=== PATIENT | female | born 1980 | race Caucasian/White ===

== ENCOUNTER 2017-12-02 12:34 | Inpatient (IN) | payer MEDICAID ==
[2017-12-02] MEDS: KETOROLAC 15 MG INJ IV (03:00)
[~2017-12-02 12:34] MED LIST: DEXAMETHASONE 4 MG/ML 1 ML INJ
[2017-12-02] MEDS: SOD CHLORIDE 0.9% 1,000 ML IV ×2 (13:29→19:57)
[2017-12-02] MEDS: ONDANSETRON 4 MG INJ IV ×3 (13:30→23:06)
[2017-12-02 13:32] LABS: ADD MAN DIFF? NO
[2017-12-02 13:36] LABS: BASOPHILS % 0.2 % (0.0-2.0); HEMATOCRIT 40.1 % (37.0-47.0); HEMOGLOBIN 13.6 g/dl (12.0-16.0); LYMPHOCYTES # 1.1 10^3/ul (0.8-2.9); LYMPHOCYTES % 6.6 % (15.0-51.0); MEAN CORPUSCULAR HEMOGLOBIN 32.3 pg (29.0-33.0); MEAN CORPUSCULAR HGB CONC 33.9 g/dl (32.0-37.0); MEAN CORPUSCULAR VOLUME 95.2 fl (82.0-101.0); MEAN PLATELET VOLUME 9.5 fl (7.4-10.4); MONOCYTE # 0.6 10^3/ul (0.3-0.9); MONOCYTES % 3.5 % (0.0-11.0); NEUTROPHIL # 14.7 10^3/ul (1.6-7.5); NEUTROPHILS % 89.2 % (39.0-77.0); PLATELET COUNT 234 10^3/UL (140-415); RED BLOOD COUNT 4.21 10^6/ul (4.20-5.40); RED CELL DISTRIBUTION WIDTH 12.1 % (11.5-14.5)
[2017-12-02 13:36] LABS: WHITE BLOOD COUNT 16.5 10^3/ul (4.8-10.8)
[2017-12-02] MEDS: morphine 4 MG/ML VIAL IV (13:36)
[2017-12-02 13:41] LABS: ADD UMIC YES; UR ASCORBIC ACID NEGATIVE (NEGATIVE); UR BILIRUBIN (Dip) NEGATIVE (NEGATIVE); UR BLOOD (Dip) 1+ mg/dL (NEGATIVE); UR CLARITY SLIGHTLY CLOUDY (CLEAR); UR COLOR YELLOW (YELLOW); UR GLUCOSE (Dip) NEGATIVE (NEGATIVE); UR KETONES (Dip) NEGATIVE (NEGATIVE); UR LEUKOCYTE ESTERASE (Dip) NEGATIVE Leu/ul (NEGATIVE); UR NITRITE (Dip) NEGATIVE (NEGATIVE); UR RBC 4 /HPF (0-5); UR SPECIFIC GRAVITY (Dip) 1.016 (1.003-1.030); UR SQUAMOUS EPITHELIAL CELL FEW /HPF (FEW); UR TOTAL PROTEIN (Dip) NEGATIVE (NEGATIVE); UR UROBILINOGEN (Dip) NEGATIVE (NEGATIVE); UR WBC 3 /HPF (0-5)
[2017-12-02 13:53] LABS: ALANINE AMINOTRANSFERASE 18 IU/L (13-69); ALKALINE PHOSPHATASE 51 IU/L (42-121); ANION GAP 14 (8-16); ASPARTATE AMINO TRANSFERASE 22 IU/L (15-46); BILIRUBIN,INDIRECT 0.8 mg/dl (0-1.1); BILIRUBIN,TOTAL 0.8 mg/dl (0.2-1.3); BLOOD UREA NITROGEN 9 mg/dl (7-20); CALCIUM 8.9 mg/dl (8.4-10.2); CARBON DIOXIDE 25 mmol/L (21-31); CHLORIDE 103 mmol/L (97-110); CREATININE 0.48 mg/dl (0.44-1.00); GLUCOSE 123 mg/dl (70-220); LIPASE 40 U/L (23-300); POTASSIUM 3.5 mmol/L (3.5-5.1); SODIUM 138 mmol/L (135-144); TOTAL PROTEIN 7.5 g/dl (6.1-8.1)
[2017-12-02 13:54] LABS: ALBUMIN/GLOBULIN RATIO 1.14
[2017-12-02] MEDS: HYDROmorphONE 0.5 MG/0.5 ML SYG IV (14:28)
[2017-12-02] MEDS ORDERED: IOHEXOL 14.3 MG(I)/ML (ADULT) BTL PO (15:00)
[2017-12-02] MEDS: IOHEXOL 14.3 MG(I)/ML (ADULT) BTL PO (15:05)
[2017-12-02] MEDS: SOD CHLORIDE 0.9% 100 ML (16:42)
[2017-12-02] MEDS: IOHEXOL 300MG/ML 150 ML BTL (16:43)
[2017-12-02] MEDS: HYDROmorphONE 2 MG/ML SYG IV ×2 (17:54→18:40)
[2017-12-02] MEDS ORDERED: ACETAMINOPHEN 325 MG TAB PO ×2 (18:00→19:30)
[2017-12-02] MEDS ORDERED: ONDANSETRON 4 MG INJ IV ×3 (18:00→21:00)
[2017-12-02] MEDS: AMPICILLIN/SULB 3 GM/NS (PMX) 100 ML IVPB (18:20)
[2017-12-02] MEDS ORDERED: MAGNESIUM HYDROXIDE 30ML CUP PO (19:30)
[2017-12-02] MEDS ORDERED: morphine 2 MG INJ IV (19:30)
[2017-12-02] MEDS ORDERED: HYDROCODONE/APAP (5/325) TAB PO (19:30)
[2017-12-02] MEDS ORDERED: DOCUSATE SODIUM 100 MG CAP PO (19:30)
[2017-12-02] MEDS ORDERED: ZOLPIDEM 5 MG TAB PO (19:30)
[2017-12-02] MEDS: BUPIVACAINE 0.25% (MPF) 30 ML INJ (20:36)
[2017-12-02] MEDS: LIDOCAINE 1%/EPI 30 ML INJ (20:37)
[2017-12-02] MEDS ORDERED: MIDAZOLAM 1 MG/ML 2 ML INJ IV (21:00)
[2017-12-02] MEDS ORDERED: ALBUTEROL 0.083% (NEB) 2.5 MG/3 ML AMP HHN (21:00)
[2017-12-02] MEDS ORDERED: hydrALAzine 20 MG INJ IV (21:00)
[2017-12-02] MEDS ORDERED: DIPHENHYDRAMINE 50 MG INJ IV (21:00)
[2017-12-02] MEDS ORDERED: MEPERIDINE 25 MG INJ IV (21:00)
[2017-12-02] MEDS ORDERED: FENTAnyl 50 MCG/ML VIAL IV ×2 (21:00)
[2017-12-02] MEDS ORDERED: OXYCODONE/ACETAMINOPHEN (5/325) TAB PO ×2 (21:00)
[2017-12-02] MEDS ORDERED: LABETALOL HCL 20MG INJ IV (21:00)
[2017-12-02] MEDS ORDERED: IPRATROPIUM (NEB) 0.5 MG/2.5 ML AMP HHN (21:00)
[2017-12-02] MEDS ORDERED: TRIMETHOBENZAMIDE 100 MG/ML VIAL IM (21:00)
[2017-12-02] MEDS ORDERED: HYDROmorphONE 1 MG/5 ML IV SYRINGE IV ×2 (21:00)
[2017-12-02] MEDS ORDERED: EPHEDrine SULFATE 50 MG/5 ML SYG IV (21:00)
[2017-12-02] MEDS ORDERED: CEFAZOLIN 1 GM INJ (21:04)
[2017-12-02] MEDS ORDERED: GLYCOPYRROLATE 0.4 MG INJ (21:04)
[2017-12-02] MEDS ORDERED: ROCURONIUM 50 MG INJ (21:04)
[2017-12-02] MEDS ORDERED: NEOSTIGMINE 3 MG/3 ML SYRINGE (21:04)
[2017-12-02] MEDS ORDERED: PROPOFOL 20 ML (21:04)
[2017-12-02] MEDS ORDERED: DEXAMETHASONE 4 MG/ML 1 ML INJ (21:04)
[2017-12-02] MEDS ORDERED: FENTAnyl 50 MCG/ML VIAL (21:04)
[2017-12-02] MEDS ORDERED: MIDAZOLAM 1 MG/ML 2 ML INJ (21:04)
[2017-12-02] MEDS ORDERED: ONDANSETRON 4 MG INJ (21:04)
[2017-12-02] MEDS: HYDROmorphONE 1 MG/5 ML IV SYRINGE IV (23:05)
[2017-12-02] MEDS: FENTAnyl 50 MCG/ML VIAL IV (23:06)
[2017-12-03] MEDS ORDERED: PIPER-TAZO 3.375 GM IV (PMX) 100 ML IVPB
[2017-12-03] MEDS: morphine 2 MG INJ IV ×4 (00:25→23:40)
[2017-12-03] MEDS: D5-NS + KCL 20 MEQ 1,000 ML IV ×4 (00:27→23:40)
[2017-12-03] MEDS: PIPER-TAZO 3.375 GM IV (PMX) 100 ML IVPB ×5 (00:27→23:39)
[2017-12-03] MEDS: KETOROLAC 15 MG INJ IV ×6 (03:00→19:50)
[2017-12-03 05:40] LABS: ADD MAN DIFF? NO
[2017-12-03 05:42] LABS: ABNORMAL IP MESSAGE 1; BASOPHILS % 0.1 % (0.0-2.0); HEMATOCRIT 36.7 % (37.0-47.0); HEMOGLOBIN 12.5 g/dl (12.0-16.0); LYMPHOCYTES # 0.3 10^3/ul (0.8-2.9); MEAN CORPUSCULAR HEMOGLOBIN 32.9 pg (29.0-33.0); MEAN CORPUSCULAR HGB CONC 34.1 g/dl (32.0-37.0); MEAN CORPUSCULAR VOLUME 96.6 fl (82.0-101.0); MONOCYTE # 0.4 10^3/ul (0.3-0.9); MONOCYTES % 2.6 % (0.0-11.0); NEUTROPHIL # 14.3 10^3/ul (1.6-7.5); NEUTROPHILS % 94.7 % (39.0-77.0); PLATELET COUNT 203 10^3/UL (140-415); RED CELL DISTRIBUTION WIDTH 12.4 % (11.5-14.5)
[2017-12-03 05:42] LABS: WHITE BLOOD COUNT 15.1 10^3/ul (4.8-10.8)
[2017-12-03 06:02] LABS: POSITIVE DIFF @See below
[2017-12-03 06:15] LABS: HEMOGLOBIN A1C 5.4 % (0-5.9)
[2017-12-03] MEDS: ENOXAPARIN 40 MG/0.4 ML SYG SC (06:34)
[2017-12-03 06:39] LABS: ANION GAP 13 (8-16); BLOOD UREA NITROGEN 3 mg/dl (7-20); CARBON DIOXIDE 23 mmol/L (21-31); CHLORIDE 104 mmol/L (97-110); CREATININE 0.46 mg/dl (0.44-1.00); GLUCOSE 219 mg/dl (70-220); MAGNESIUM 1.7 mg/dl (1.7-2.5); POTASSIUM 3.9 mmol/L (3.5-5.1); SODIUM 136 mmol/L (135-144)
[2017-12-03 06:44] LABS: ALANINE AMINOTRANSFERASE 17 IU/L (13-69); ALBUMIN/GLOBULIN RATIO 0.93; ALKALINE PHOSPHATASE 52 IU/L (42-121); ANION GAP 13 (8-16); ASPARTATE AMINO TRANSFERASE 24 IU/L (15-46); BILIRUBIN,INDIRECT 0.5 mg/dl (0-1.1); BILIRUBIN,TOTAL 0.5 mg/dl (0.2-1.3); BLOOD UREA NITROGEN 3 mg/dl (7-20); CALCIUM 7.9 mg/dl (8.4-10.2); CARBON DIOXIDE 23 mmol/L (21-31); CHLORIDE 104 mmol/L (97-110); CREATININE 0.49 mg/dl (0.44-1.00); GLUCOSE 222 mg/dl (70-220); POTASSIUM 3.7 mmol/L (3.5-5.1); SODIUM 136 mmol/L (135-144); TOTAL PROTEIN 6.2 g/dl (6.1-8.1)
[2017-12-03] MEDS: HYDROCODONE/APAP (5/325) TAB PO ×2 (11:22→17:42)
[2017-12-04] MEDS: KETOROLAC 15 MG INJ IV ×3 (04:14→14:18)
[2017-12-04] MEDS: PIPER-TAZO 3.375 GM IV (PMX) 100 ML IVPB ×4 (05:25→23:39)
[2017-12-04] MEDS: ENOXAPARIN 40 MG/0.4 ML SYG SC (05:29)
[2017-12-04 05:40] LABS: ADD MAN DIFF? NO
[2017-12-04 05:43] LABS: BASOPHILS % 0.1 % (0.0-2.0); EOSINOPHILS % 0.1 % (0.0-7.0); HEMATOCRIT 35.5 % (37.0-47.0); HEMOGLOBIN 11.7 g/dl (12.0-16.0); LYMPHOCYTES # 0.7 10^3/ul (0.8-2.9); LYMPHOCYTES % 6.1 % (15.0-51.0); MEAN CORPUSCULAR HEMOGLOBIN 32.1 pg (29.0-33.0); MEAN CORPUSCULAR VOLUME 97.3 fl (82.0-101.0); MEAN PLATELET VOLUME 9.9 fl (7.4-10.4); MONOCYTE # 0.4 10^3/ul (0.3-0.9); MONOCYTES % 3.9 % (0.0-11.0); NEUTROPHIL # 9.8 10^3/ul (1.6-7.5); NEUTROPHILS % 89.6 % (39.0-77.0); PLATELET COUNT 196 10^3/UL (140-415); RED BLOOD COUNT 3.65 10^6/ul (4.20-5.40); RED CELL DISTRIBUTION WIDTH 12.4 % (11.5-14.5)
[2017-12-04 05:43] LABS: WHITE BLOOD COUNT 10.9 10^3/ul (4.8-10.8)
[2017-12-04] MEDS: morphine 2 MG INJ IV ×2 (10:21→19:40)
[2017-12-04] MEDS: D5-NS + KCL 20 MEQ 1,000 ML IV (12:30)
[2017-12-04] MEDS: ACETAMINOPHEN 325 MG TAB PO (12:30)
[2017-12-04] MEDS: IBUPROFEN 600 MG TAB PO (14:57)
[2017-12-04] MEDS: SOD CHLORIDE 0.9% 500 ML IV (18:34)
[2017-12-04] MEDS: SOD CHLORIDE 0.9% 1,000 ML IV (20:21)
[2017-12-05] MEDS: POTASSIUM CHLORIDE 10 MEQ in SOD CHLORIDE 0.9% 1,000 ML IV ×2 (02:36→05:30)
[2017-12-05] MEDS: HYDROCODONE/APAP (5/325) TAB PO (02:36)
[2017-12-05] MEDS: NACL 0.9% 3 ML SYG IV ×2 (02:54→05:36)
[2017-12-05] MEDS: PIPER-TAZO 3.375 GM IV (PMX) 100 ML IVPB ×2 (05:36→12:07)
[2017-12-05 06:11] LABS: ADD MAN DIFF? NO
[2017-12-05 06:13] LABS: BASOPHILS % 0.4 % (0.0-2.0); EOSINOPHILS % 0.6 % (0.0-7.0); HEMATOCRIT 33.1 % (37.0-47.0); HEMOGLOBIN 10.8 g/dl (12.0-16.0); LYMPHOCYTES # 0.7 10^3/ul (0.8-2.9); LYMPHOCYTES % 15.4 % (15.0-51.0); MEAN CORPUSCULAR HEMOGLOBIN 31.9 pg (29.0-33.0); MEAN CORPUSCULAR HGB CONC 32.6 g/dl (32.0-37.0); MEAN CORPUSCULAR VOLUME 97.6 fl (82.0-101.0); MEAN PLATELET VOLUME 9.8 fl (7.4-10.4); MONOCYTE # 0.4 10^3/ul (0.3-0.9); MONOCYTES % 9.1 % (0.0-11.0); NEUTROPHIL # 3.5 10^3/ul (1.6-7.5); NEUTROPHILS % 74.1 % (39.0-77.0); PLATELET COUNT 185 10^3/UL (140-415); RED BLOOD COUNT 3.39 10^6/ul (4.20-5.40); RED CELL DISTRIBUTION WIDTH 12.7 % (11.5-14.5)
[2017-12-05 06:13] LABS: WHITE BLOOD COUNT 4.7 10^3/ul (4.8-10.8)
[2017-12-05] MEDS: ENOXAPARIN 40 MG/0.4 ML SYG SC (06:26)
[2017-12-05 06:44] LABS: ANION GAP 7 (8-16); BLOOD UREA NITROGEN 2 mg/dl (7-20); CALCIUM 7.6 mg/dl (8.4-10.2); CARBON DIOXIDE 27 mmol/L (21-31); CHLORIDE 108 mmol/L (97-110); CREATININE 0.49 mg/dl (0.44-1.00); GLUCOSE 99 mg/dl (70-220); POTASSIUM 3.8 mmol/L (3.5-5.1); SODIUM 138 mmol/L (135-144)
[2017-12-05] MEDS: IBUPROFEN 600 MG TAB PO (07:36)
== END 2017-12-05 15:25 | disposition home or self-care (01) | DRG 340 ==
LOC: 2NE 19:07 → FTE 12:34 → 2NE 17:57
PROC: 0DTJ4ZZ Resection of Appendix, Percutaneous Endoscopic Approach (ICD-10-PCS; principal; 2017-12-02 21:00)
DX: K35.2 Acute appendicitis with generalized peritonitis (principal)
CPT/HCPCS: 36415; 71045; 74176; 74177; 80048; 80053; 81001; 81025; 83036; 83690; 83735; 84100; 85025; 87040; 88304; 96361; 96374; 96375; 96376; 99285-25